=== PATIENT | female | born 1935 | race Caucasian/White ===

== ENCOUNTER 2017-02-01 11:31 | Emergency (ER) | payer OTHER ==
[~2017-02-01] VITALS: Ht 170.2 cm; Wt 75.0 kg
[2017-02-01 11:34] VITALS: Ht 170.2 cm; Wt 75.0 kg
[2017-02-01] MEDS ORDERED: IBUPROFEN 600 MG TAB PO ONE (12:00)
[2017-02-01] MEDS ORDERED: LOSA1TAB21 PO (13:15)
[2017-02-01] MEDS ORDERED: ASPI81TA3 PO (13:15)
[2017-02-01] MEDS ORDERED: RANI150T9 PO (13:15)
[2017-02-01] MEDS ORDERED: PRAV40TA76 PO (13:16)
[2017-02-01] MEDS ORDERED: EZET10TA3 PO (13:17)
[2017-02-01] MEDS ORDERED: LATA2.5D9 BOTH EYES (13:18)
[2017-02-01] MEDS ORDERED: BRIM15DR2 BOTH EYES (13:18)
[2017-02-01] MEDS ORDERED: BROM1.7D9 BOTH EYES (13:19)
[2017-02-01] MEDS ORDERED: DORZ10DR22 BOTH EYES (13:19)
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
[2017-02-01] MEDS ORDERED: IBUP-1542 PO (13:54)
[2017-02-01] MEDS ORDERED: HYDR-906 PO (13:54)
[2017-02-01] MEDS ORDERED: HYDROCODONE/APAP (5/325) TAB PO ONE (14:00)
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
[2017-02-01 14:05] VITALS: BP 170/78; PULSE 70; RESP 17
== END 2017-02-01 14:22 | disposition home or self-care (01) ==
LOC: E/R 11:31
DX: M25.512 Pain in left shoulder (principal); M25.551 Pain in right hip; M54.2 Cervicalgia; Z04.1 Encounter for examination and observation following transport accident; Z79.82 Long term (current) use of aspirin
CPT/HCPCS: 71010; 72050; 72170; 73030